=== PATIENT | female | born 1970 | race Caucasian/White ===

== ENCOUNTER 2017-07-30 10:02 | Day surgery (SDC) | payer BC ==
[~2017-07-30 10:02] MED LIST: Buffered Lidocaine 0.9% SYRIN* 5 ML/SYR SYRINGE INTRADERM ONE; Dexamethasone IV* 4 MG/ML 1 ML (4 MG) IV SLOW PU ONE; Famotidine TAB* 20 MG PO ONE
[2017-07-30] MEDS ORDERED: ceFAZolin 2 GM PREMIX (*) 2 GM/50 ML BAG IVPB ONE (10:23)
[2017-07-30] MEDS ORDERED: Buffered Lidocaine 0.9% SYRIN* 5 ML/SYR SYRINGE ONE (10:23)
[2017-07-30] MEDS ORDERED: Dexamethasone IV* 4 MG/ML 1 ML (4 MG) ONE (10:23)
[2017-07-30] MEDS ORDERED: Famotidine TAB* 20 MG ONE (10:23)
[2017-07-30] MEDS ORDERED: Midazolam* 1 MG/ML 5 ML VIAL (5 MG) ONE (11:10)
[2017-07-30] MEDS ORDERED: fentaNYL* 50 MCG/ML 5 ML VIAL (250 MCG VIAL) ONE (11:10)
[2017-07-30] MEDS ORDERED: Atracurium* 10 MG/ML 10 ML VIAL ONE (11:10)
[2017-07-30] MEDS ORDERED: Propofol* 10 MG/ML 20 ML BTL IV PUSH ONE (11:11)
[2017-07-30] MEDS ORDERED: Lidocaine 2% PF * 5 ML VIAL ONE (11:11)
[2017-07-30] MEDS ORDERED: Ondansetron INJ* 2 MG/ML VIAL ONE (11:11)
[2017-07-30] MEDS ORDERED: Ketorolac INJ* 30 MG/ML 1 ML VIAL ONE (11:11)
[2017-07-30] MEDS ORDERED: oxyCODONE/Acetamin 5/325 MG* TAB PO PRN (12:09)
[2017-07-30] MEDS ORDERED: DiMENhydriNATE IV* 50 MG/ML VIAL IV PUSH PRN (12:09)
[2017-07-30] MEDS ORDERED: fentaNYL* 50 MCG/ML 2 ML VIAL (100 MCG VIAL) IV PRN (12:09)
[2017-07-30] MEDS ORDERED: Ondansetron INJ* 2 MG/ML VIAL IV PRN (12:09)
[2017-07-30] MEDS ORDERED: Naloxone* 0.4 MG/ML 1 ML VIAL IV PRN (12:09)
[2017-07-30] MEDS ORDERED: HYDROmorphone INJ* 1 MG/ML CARPUJECT SYRINGE IV PRN (12:09)
[2017-07-30] MEDS ORDERED: Bupivacaine 0.25% SDV* 30 ML ONE (13:15)
[2017-07-30] MEDS ORDERED: Metoprolol Tartrate IV* 1 MG/ML 5 ML VIAL ONE (14:16)
[2017-07-30] MEDS: Metoprolol Tartrate IV* 1 MG/ML 5 ML VIAL IV PRN ×5 (14:17→14:54)
[2017-07-30] MEDS ORDERED: fentaNYL* 50 MCG/ML 2 ML VIAL (100 MCG VIAL) ONE (14:26)
[2017-07-30] MEDS ORDERED: oxyCODONE/Acetamin 5/325 MG* TAB ONE (14:27)
[2017-07-30 14:58] VITALS: BP 175/99
--- NOTE | 2017-08-01 01:21 | OP ---
OPERATIVE REPORT: DATE OF PROCEDURE: 07/30/17 - [facility] DATE OF : 68 SURGEON: Roderick Rubio MD. EMPLOYEE RELATIONS ADMINISTRATOR: MALICK Thomas. A physician personal banking assistant was required for the length of the procedure for positioning, retraction, and closure. ANESTHESIOLOGIST: Skinny Ng MD. ANESTHESIA: General anesthesia, local anesthesia with Marcaine 0.25% in the subcutaneous tissues. PRE-OP DIAGNOSES: 1. Left ankle and heel laceration, status post closure in the emergency room, 07/27/17. 2. Left Achilles tendon laceration. 3. Possible flexor tendon injuries, multiple, at the ankle. 4. Possible foreign body, left lower leg. POST-OP DIAGNOSES: 1. Left ankle and heel skin laceration, status post repair in emergency room, 07/27/17. 2. Left Achilles tendon laceration. 3. Left ankle flexor retinaculum laceration. 4. No left ankle flexor tendon injuries. 5. No foreign body, left lower leg. PROCEDURES: 1. Open exploration of penetrating wound of left lower extremity, ankle and lower leg. 2. Irrigation and debridement, open, wound of left ankle area. 3. Left open Achilles tendon repair. 4. Left ankle repair of flexor retinaculum, ligamentous type structure. ANTIBIOTICS: Ancef 2 g IV. IV FLUIDS: 1300 cc crystalloid. NTUQ-MO-AEXL TIME: 91 minutes. TOURNIQUET TIME: 69 minutes at 300 mmHg. SPECIMEN: None. IMPLANTS: None. ESTIMATED BLOOD LOSS: Minimal. COMPLICATIONS: None. 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 The patient has been home drinking wine. The patient's dogs were rambunctious and knocked her over. She felt backwards and her left ankle was cut by her wine glass, that had broken. The patient went to [facility] Emergency Room. I was on-call and spoke with the physician personal banking assistant. She described the wound to me. She irrigated it well. She stated that she placed 2 stitches below the skin and then many stitches in the skin obtaining full closure. IV antibiotics and tetanus were given in the emergency room. The patient was sent out on oral Keflex. The patient followed up with me in clinic the following morning where I booked her before surgery. Given the physician personal banking assistant's excellent description of her wound and the patient's physical exam, it was clear that the patient had an Achilles tendon laceration. Because of pain with examination, it was difficult to tell for sure the status of the flexor tendons that run through the tarsal tunnel. I was most certain of the FHL having robust strength, but I was less sure about tibialis posterior and flexor digitorum longus. It should be noted that in preoperative holding, the patient gave a slightly better exam and seemed to have function of all 3 intact. The patient's cap refill was less than 2 seconds in the foot and sensation was full. Physician personal banking assistant in her note had included that she had found a pulse by Doppler proximal and distal to the laceration site. PA in the emergency room had thought that 2 flexor tendons might be cut as well as the Achilles. I brought the patient to surgery. We discussed risks and potential complications of surgery including bleeding, infection, nerve or blood vessel injury, wound breakdown, wound infection, tendon rerupture, ankle stiffness and pain. I talked about the long recovery after the surgery. The patient is a cigarette smoker and we talked about the importance of cutting down in her smoking volume. DESCRIPTION OF PROCEDURE: Preoperatively, the patient signed a written consent in the holding area. Operative extremity was marked in holding area. I repeated my physical exam as detailed above. The patient appeared to have some strength of toe flexion, lesser and great as well as ability to invert and plantarly flex the foot. The patient was brought to the operating room and placed supine on operating room table. General anesthesia was induced. A tourniquet was placed around the left thigh. The left lower extremity was prepped with Betadine and then draped. It should be clarified that the patient was intubated on the stretcher and then placed prone on the operating room table. The axilla of both left and right were free. The bed was well padded to prevent any pressure source. The left lower extremity was prepped and then draped. Surgical time-out performed. Tourniquet was elevated to 300 mmHg. Stitches that had been placed in the emergency room were removed. Both the suture from the stitches as well as the instruments used to remove them were placed off to the side, not to be used again used in the operation. The wound was opened up with some assistance, the skin and subcutaneous tissues. The flexor retinaculum was noted to have a tear through it, inline with the skin laceration. Two stitches were noted to have been placed in there , by the PA in the emergency department. These stitches were also removed. No gross contamination of this wound was appreciated. I next moved to a small poke hole, proximal to the transverse laceration just above the insertion of the Achilles tendon. The patient had been examined with this poke hole in the emergency department and the physician personal banking assistant had been concerned about a possible foreign body such as a piece of glass. That small poke hole was only several millimeters wide. It had not been closed in the emergency department. I extended that poke hole proximally and distally, several centimeters. I dissected through the subcutaneous tissue and with retractors placed did not see any foreign body. I also placed a finger and did not palpate any foreign body. I next irrigated these wounds very well with a considerable amount of irrigation to clean the wound as it had been opened at home and the top poke hole had not been closed in the emergency department. I next explored the wound in some more detail. For this, I dropped the tourniquet as I wanted to be able to appreciate the pulsing of the posterior tibialis artery. There was no significant bleeding whatsoever when tourniquet was dropped. I appreciated the Achilles tendon. It had been clearly lacerated full thickness. There was more the stump distally than I had been anticipating, which made me think that I would not need a suture anchor, but I had suture anchors available just in case. I did not appreciate a plantaris tendon, which some patients have and some do not. Deep to the ankle flexor retinaculum, I explored, wanting to the determine whether flexor tendons were indeed cut. I was able to identify all 3 tendons; FHL, FDL, and tibialis posterior; all were fully intact. Not partially or fully torn. I appreciated a neurovascular bundle, but did not dissect around it significantly. With the tendons I pulled each of them slightly up and out to confirm no tear whatsoever. I decided to proceed with my repair. I closed the torn ankle flexor retinaculum with [id number] stitches using Vicryl 0 suture. I placed 4 to 5 of these. I next went about to my Achilles tendon repair. The transverse laceration was not going to provide me sufficient exposure both proximally and distally. I thought about for some time, the shape of my planned incision, so as to minimize the possibility of skin necrosis. I tried to make it such that there were no angles of skin bridge less than 90 degrees. I extended the laceration site into an incision proximally. It was just lateral to the Achilles and then overlying the Achilles more proximally. My attempt was to avoid the skin incision being directly superficial to the tendon but also avoiding a compromising shape of the healing tissues. I also extended the incision just a bit distally. I identified my Achilles tendon ends. Paratenon was visible. This was incised longitudinally, both proximal and distal. Achilles tendon ends did not need much freshening at all. I placed 1 Krackow stitch up and down in each end of the stump using FiberWire #2 suture. I tied these. I note that the for the ends of the Achilles tendon to oppose each other, the patient's ankle had to be in some significant amount of plantar flexion, at least 20 degrees. Likewise, for the skin to close according to my examination as well as according to the physician personal banking assistant in the emergency department. After my closure with FiberWire, I placed multiple horizontal mattress stitches circumferentially around the tendon repair site using Vicryl 0 suture. I liked my repair, excellently congruent. I next repaired the paratenon proximally with a running stitch using Vicryl 2-0 suture. Distally, there has not been good quality paratenons as much to repair. Irrigation. Closure of subcutaneous skin at both incision and laceration sites with Vicryl 3 -0 suture. I did the same at the more proximal laceration sites that had been a poke hole. I closed this especially loosely to allow for any drainage. Closure of the skin then performed with multiple running stitches using nylon 1- 0 suture. Xeroform, 4x4s, sterile Webril, nonsterile Webril, posterior splint followed by sugar-tong splint with plaster. The patient was returned to a supine position, awakened, and extubated. DISPOSITION: The patient was discharged home when medically stable. She was to receive Percocet as needed for pain control, Keflex x10 days t.i.d. for infection prevention and aspirin 325 mg p.o. b.i.d. x14 days for DVT prophylaxis. The patient will follow up with me in clinic 12 days postoperatively for a wound check and changing of the splint into a cast. She can call me with any concerns or problems. [id number]/[facility] #: [id number] MTDD
== END 2017-07-30 15:23 | disposition home or self-care (01) ==
LOC: OR 10:02
PROVIDERS: ATTEND Orthopaedic Surgery
DX: S86.022A Laceration of left Achilles tendon, initial encounter (principal); S91.012A Laceration without foreign body, left ankle, initial encounter; I10 Essential (primary) hypertension; J45.909 Unspecified asthma, uncomplicated; F17.210 Nicotine dependence, cigarettes, uncomplicated; W18.02XA Striking against glass with subsequent fall, initial encounter; Y92.009 Unspecified place in unspecified non-institutional (private) residence as the place of occurrence of the external cause
CPT/HCPCS: 81025; A9270-GY; J0690; J1100; J1885; J2250; J2405; J2704; J3010; J3490